=== PATIENT | female | born 2000 | race Caucasian/White ===

== ENCOUNTER 2019-12-02 09:07 | Outpatient (CLI) | payer OTHER | END 2019-12-02 09:08 | disposition home or self-care (01) | LOC: COV 09:07 | PROVIDERS: ATTEND Family Medicine | DX: Z20.828 Contact with and (suspected) exposure to other viral communicable diseases (principal) ==

== ENCOUNTER 2020-03-16 09:40 | Outpatient (CLI) | payer OTHER | END 2020-03-16 09:41 | disposition home or self-care (01) | LOC: COV 09:40 | PROVIDERS: ATTEND Family Medicine | DX: Z20.828 Contact with and (suspected) exposure to other viral communicable diseases (principal) ==